=== PATIENT | male | born 1965 | race Caucasian/White ===

== ENCOUNTER → 2017-03-12 | Outpatient (REF) | payer BC ==
[2017-03-15 00:11] LABS: Lyme Disease IgG/IgM Antibodie <0.91 ISR (0.00-0.90); Lyme Disease IgM Ab Quantitati <0.80 index (0.00-0.79)
== END ==
LOC: M LAB REF 16:33
PROVIDERS: ATTEND Nurse Practitioner Family
DX: R53.83 Other fatigue (principal)

== ENCOUNTER 2018-05-31 14:07 | Emergency (ER) | payer BC ==
[~2018-05-31] VITALS: Ht 172.7 cm; Wt 70.5 kg
[2018-05-31 14:08] VITALS: BP 138/82
--- NOTE | 2018-05-31 15:35 | REP ---
Duplex extremity venous ultrasound: Left lower extremity. History: Left calf pain and swelling. Rule out DVT. Findings: The deep veins are anechoic and fully compressible from the groin to the popliteal fossa in the left lower extremity. Color flow imaging is homogeneous. Spectral Doppler interrogation demonstrates intact respiratory variation in flow and normal manual augmentation of flow. There is no evidence of deep vein thrombosis. Impression: Negative left lower extremity duplex venous ultrasound. No evidence of deep vein thrombosis. Electronically Signed by Tiago Rankin MD 05/31/2018 03:27 P
--- NOTE | 2018-06-01 06:22 | REP ---
Left lower extremity ultrasound: History: Calf pain and swelling. Evaluate hematoma. Findings: Scanning in the area of concern in the calf demonstrates a large fluid collection within the musculature of the calf. This measures 11.6 cm in craniocaudal span by 0.6 cm in greatest thickness by 4.8 cm. Impression: Large calf fluid collection in the myofascial compartment 11.6 x 0.6 x 4.8 cm consistent with hematoma. Electronically Signed by Tiago Rankin MD 06/01/2018 08:11 A
== END 2018-05-31 15:10 | disposition home or self-care (01) ==
LOC: M ED 14:07
DX: S86.902A Unspecified injury of unspecified muscle(s) and tendon(s) at lower leg level, left leg, initial encounter (principal); X50.9XXA Other and unspecified overexertion or strenuous movements or postures, initial encounter; Y92.838 Other recreation area as the place of occurrence of the external cause; Y93.23 Activity, snow (alpine) (downhill) skiing, snowboarding, sledding, tobogganing and snow tubing; J30.81 Allergic rhinitis due to animal (cat) (dog) hair and dander

== ENCOUNTER → 2022-01-16 | Outpatient (CLI) | payer BC ==
[~2022-01-16] MED LIST: ISOVUE-300 61% 50ML VIAL As Ordered ONE; LIDOCAINE 1% MDV 20ML VIAL As Ordered ONE; TRIAMCINOLONE ACETONIDE SUSP 40 MG/ML VIAL (J3301) As Ordered ONE
== END ==
LOC: M RADPRO 13:06
PROVIDERS: ATTEND Orthopaedic Surgery
DX: M16.12 Unilateral primary osteoarthritis, left hip (principal)
CPT/HCPCS: 20610; 76000; J3301; Q9967

== ENCOUNTER 2024-03-30 08:44 | Day surgery (SDC) | payer BC ==
[~2024-03-30] VITALS: Ht 172.7 cm; Wt 66.2 kg
[~2024-03-30 08:44] MED LIST changes: -ISOVUE-300 61% 50ML VIAL As Ordered ONE; -LIDOCAINE 1% MDV 20ML VIAL As Ordered ONE; +NS 250 ML IV ONE; -TRIAMCINOLONE ACETONIDE SUSP 40 MG/ML VIAL (J3301) As Ordered ONE
[2024-03-30] MEDS ORDERED: dexmedeTOMIDine (4MCG/ML)200MCG/50ML BTL (PRECEDEX) As Ordered ONE (10:24)
[2024-03-30] MEDS ORDERED: LIDOCAINE 2% 100MG/5ML SDV (FOR ANES.) As Ordered ONE (10:24)
[2024-03-30] MEDS ORDERED: propofoL 500 MG/50 ML VIAL As Ordered ONE (10:24)
[2024-03-30 11:00] VITALS: BP 132/77; O2SAT 98
== END 2024-03-30 11:07 | disposition home or self-care (01) ==
LOC: M OPP 08:44
PROVIDERS: ATTEND Surgery
DX: Z12.11 Encounter for screening for malignant neoplasm of colon (principal); Z80.0 Family history of malignant neoplasm of digestive organs; Z86.0100 Personal history of colon polyps, unspecified; Z91.048 Other nonmedicinal substance allergy status

== ENCOUNTER → 2024-10-04 | Outpatient (CLI) | payer BC | LOC: M RAD 13:30 | PROVIDERS: ATTEND Physician Assistant Medical | DX: R22.2 Localized swelling, mass and lump, trunk (principal) ==

== ENCOUNTER → 2024-12-27 | Outpatient (CLI) | payer BC | LOC: M RAD 15:38 | PROVIDERS: ATTEND Family Medicine | DX: R22.2 Localized swelling, mass and lump, trunk (principal) ==